=== PATIENT | female | born 1965 | race Caucasian/White ===

== ENCOUNTER → 2022-10-06 12:16 | Outpatient (CLI) | payer OTHER, SELFPAY ==
--- NOTE | ~2022-10-06 | XR_ITS ---
XR knee RT 3V 10/06/2022 12:37 Indication: Status post recent fall. Right knee pain. Procedure: 3 views right knee Comparison: No prior studies for comparison. Findings: Moderate osteoarthritis of the right knee. There are surgical changes of ACL repair. Small knee effusion. No acute fracture or traumatic malalignment. No fracture or traumatic malalignment. Impression: 1: Moderate osteoarthritis of the right knee. 2: Small joint effusion. Reviewed, dictated and finalized at location A. ANICAL FITTER Impression: 1: Moderate osteoarthritis of the right knee. 2: Small joint effusion.
== END ==
PROVIDERS: PCP Internal Medicine; Visit Provider Nurse Practitioner
DX: M25.561 Pain in right knee (principal); M17.11 Unilateral primary osteoarthritis, right knee; M25.461 Effusion, right knee
CPT/HCPCS: 73562

== ENCOUNTER 2023-12-23 07:08 | Outpatient (CLI) | payer OTHER, SELFPAY ==
--- NOTE | ~2023-12-23 | MR_ITS ---
MRI of the left knee Clinical history: Pain Technique: Coronal proton density and proton density-weighted images, sagittal proton-density and T2 fat-sat images, and axial proton-density fat-saturated images were acquired. Findings: Anterior and posterior cruciate ligaments are intact. Medial collateral ligament and the la teral collateral ligament complex are intact. Popliteus tendon is intact. Questional subtle undersurface flap tear of the posterior horn medial meniscus versus intrasubstance degenerative signal. No lateral meniscal tear seen. 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 There is mild chondromalacia of the femoral trochlea. There is mild diffuse chondral thinning in the media l compartment towards the joint line. Articular cartilage in the lateral compartment is well preserve d. Extensor mechanism is intact. Minimal joint effusion present. No Solomon's cyst. Impression: Questionable undersurface flap tear of the posterior horn medial meniscus versus intrasubstance degen erative signal. 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 Reviewed, dictated and finalized at location M. Impression: Questionable undersurface flap tear of the posterior horn medial meniscus versu s intrasubstance degenerative signal. 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
== END 2023-12-23 07:09 ==
PROVIDERS: PCP Internal Medicine
DX: M94.262 Chondromalacia, left knee (principal); M17.0 Bilateral primary osteoarthritis of knee; R26.9 Unspecified abnormalities of gait and mobility; S83.207A Unspecified tear of unspecified meniscus, current injury, left knee, initial encounter; X58.XXXA Exposure to other specified factors, initial encounter; Z91.81 History of falling
CPT/HCPCS: 73721